=== PATIENT | female | born 1935 | race Caucasian/White ===

== ENCOUNTER 2024-01-24 13:11 | Emergency (ER) | payer MEDICARE, OTHER ==
[~2024-01-24] VITALS: Ht 165.1 cm; Wt 93.2 kg
[2024-01-24] MEDS ORDERED: HYDROCHLOROTH12.5 MG PO (13:26)
[2024-01-24] MEDS ORDERED: LEVOTHYROXINE50 MC1 PO (13:27)
[2024-01-24] MEDS ORDERED: OMEPRAZOLE20 MG PO (13:27)
[2024-01-24] MEDS ORDERED: LIPITOR10 MG PO (13:28)
[2024-01-24 14:42] VITALS: BP 125/72
== END 2024-01-24 14:40 | disposition home or self-care (01) ==
LOC: ED 13:11
DX: M79.18 Myalgia, other site (principal); I10 Essential (primary) hypertension; Z91.041 Radiographic dye allergy status; Z79.899 Other long term (current) drug therapy; Z96.653 Presence of artificial knee joint, bilateral
CPT/HCPCS: 93971; 99283-25